=== PATIENT | female | born 1985 | race Caucasian/White ===

== ENCOUNTER 2016-06-28 15:49 | Emergency (ER) | payer MEDICAID ==
--- NOTE | 2016-06-28 17:36 | UCPHY ---
[id number]: 06/28/16 17:16 HPI/ROS: CHIEF COMPLAINT: Sore throat, diarrhea HISTORY OF PRESENT ILLNESS: 30-year-old female, daily smoker, in the urgent care with 2 days of sore throat loose stool. No melena or hematochezia. Son is concurrently sick with similar. No fever no chills. No nausea no vomiting. No abdominal pain. No back or flank pain. No urinary complaints. REVIEW OF SYSTEMS: A ten point review of systems was performed and is negative with the exception of the items mentioned in the HPI PAST MEDICAL & SURGICAL HISTORY: No pertinent medical or surgical history SOCIAL HISTORY: Daily smoker PHYSICAL EXAM (Prior to examination, patient consented to physical exam, hands were washed and my usual and customary physical exam procedures followed) 1) GENERAL: Well-developed, well-nourished, alert and oriented. Appears to be in no acute distress. 2) HEAD: Normocephalic, atraumatic 3) HEENT: Pupils equal, round, reactive to light bilaterally. Sclera anicteric. Nasopharynx, oropharynx, clear, no lesions. No tonsillar enlargement. No tonsillar exudate. No trismus no drooling. Airway patent Ears bilaterally with normal tympanic membranes. 4) NECK: Full range of motion, no meningeal signs. 5) LUNGS: Clear auscultation bilaterally, no wheezes, no rhonchi, no retractions. 6) HEART: Regular rate and rhythm, no murmur, no heave, no gallop. 7) ABDOMEN: No guarding, no rebound, no focal tenderness, negative McBurney's, negative Woods's, negative Rovsing's, negative peritoneal sign, I am unable to elicit any abdominal pain 8) MUSCULOSKELETAL: No peripheral edema or discoloration. 9) BACK: No CVA tenderness, 10) SKIN: No rash, no petechiae. DIFFERENTIAL DIAGNOSIS: In no particular include but limited to strep pharyngitis, mononucleosis, acute appendicitis (Mark,Brando Annamarie) Constitutional: Initial Vital Signs Temperature (C) 37.5 C 06/28/16 17:33 Heart Rate 97 06/28/16 17:33 Respiratory Rate 16 06/28/16 17:33 Blood Pressure 130/76 H 06/28/16 17:33 O2 Sat (%) 97 06/28/16 17:33 O2 Delivery Mode Room Air Allergies/Adverse Reactions: promethazine HCl [From Phenergan] Allergy (Mild, Verified 06/28/16 17:44) Penicillins Allergy (Unknown, Verified 06/28/16 17:44) lorazepam [From Ativan] Allergy (Verified 06/28/16 17:44) Home Medications: Medication Instructions Recorded Wellbutrin 100mg (RX) 09/03/15 Hydrocodone/APAP 5/325 [[place] 1 each PO Q4-6PRN PRN #15 tab 03/18/16 5/325 (*)] AZITHROMYCIN [Z-PACK] 500 mg PO DAILY #1 packet 06/28/16 MDM/Departure - MDM ED Course/Re-evaluation: Doubt acute appendicitis in the absence of abdominal pain either subjectively or objectively. Positive strep pharyngitis. No evidence of peritonsillar abscess. She is penicillin allergic. Prescribed azithromycin Usual and customary strict return precautions provided. She feels comfortable with this plan. (Brando Flores) Urgent Care PA supervision Physician documentation: The patient was evaluated and managed by the physician dental office assistant. My co- signature indicates that I have reviewed this chart and I agree with the findings and plan of care as documented. I am the secondary supervising physician. (Alphonso Le) - Depart Disposition: Home, Routine, Self-Care Clinical Impression: Strep pharyngitis Condition: Good Instructions: Strep Throat (ED) Stand Alone Forms: Work Excuse Prescriptions: AZITHROMYCIN [Z-PACK] 500 mg PO DAILY #1 packet Referrals: [facility] [Provider Group] - As per Instructions - PQRS PQRS Measurement: Not applicable (Brando Flores)
[2016-06-28 17:43] VITALS: BP 130/76; PULSE 97; RESP 16; TEMP 99.5; O2SAT 97
[2016-06-28] MEDS ORDERED: AZITHROMYCIN 250 MG TAB PO ONE (17:54)
== END 2016-06-28 18:02 | disposition home or self-care (01) ==
LOC: CED 15:49
DX: J02.0 Streptococcal pharyngitis (principal); Z72.0 Tobacco use
CPT/HCPCS: 87880-PO; G0463-PO